=== PATIENT | female | born 2000 | race Caucasian/White ===

== ENCOUNTER → 2023-01-05 11:00 | Outpatient (BNVA) | payer MEDICAID, SELFPAY | PROVIDERS: Visit Provider Nurse Practitioner Women's Health | DX: Z01.419 Encounter for gynecological examination (general) (routine) without abnormal findings (principal); Z11.3 Encounter for screening for infections with a predominantly sexual mode of transmission; R30.0 Dysuria; Z71.85 Encounter for immunization safety counseling | CPT/HCPCS: 81000; 86592; 86803; 87086; 87340; 87491; 87591; 87661; 87806; 88175 ==

== ENCOUNTER → 2024-09-18 13:01 | Outpatient (BNVA) | payer BC, MEDICAID, SELFPAY | PROVIDERS: Visit Provider Nurse Practitioner Women's Health | DX: N92.6 Irregular menstruation, unspecified (principal) | CPT/HCPCS: 82306; 83036; 84146; 84403; 84439; 84443; 84702; 85025; 86592; 86803; 87340; 87624; 87806 ==

== ENCOUNTER → 2024-10-02 11:02 | Outpatient (BNVA) | payer BC, MEDICAID, SELFPAY | PROVIDERS: Visit Provider Nurse Practitioner Women's Health | DX: N92.6 Irregular menstruation, unspecified (principal) | CPT/HCPCS: 76830 ==

== ENCOUNTER → 2024-11-01 10:30 | Outpatient (BNVA) | payer BC, MEDICAID, SELFPAY | PROVIDERS: Visit Provider Nurse Practitioner Women's Health | DX: Z11.3 Encounter for screening for infections with a predominantly sexual mode of transmission (principal); A59.9 Trichomoniasis, unspecified | CPT/HCPCS: 87491; 87591; 87661 ==

== ENCOUNTER → 2024-11-29 09:25 | Outpatient (BNVA) | payer BC, MEDICAID, SELFPAY | PROVIDERS: Visit Provider Nurse Practitioner Women's Health | DX: R79.89 Other specified abnormal findings of blood chemistry (principal); E55.9 Vitamin D deficiency, unspecified | CPT/HCPCS: 82306; 84146 ==

== ENCOUNTER → 2024-12-03 10:37 | Outpatient (BNVA) | payer BC, MEDICAID, SELFPAY | PROVIDERS: Visit Provider Nurse Practitioner Women's Health | DX: N83.292 Other ovarian cyst, left side (principal); N83.291 Other ovarian cyst, right side | CPT/HCPCS: 76830 ==

== ENCOUNTER → 2024-12-06 14:19 | Outpatient (BNVA) | payer BC, MEDICAID, SELFPAY | PROVIDERS: Visit Provider Nurse Practitioner Women's Health | DX: N92.6 Irregular menstruation, unspecified (principal) | CPT/HCPCS: 84702 ==